=== PATIENT | female | born 2000 | race Two or more races ===

== ENCOUNTER 2023-12-05 16:56 | Emergency (ER) | payer MEDICAID ==
[~2023-12-05] VITALS: Ht 165.1 cm; Wt 58.1 kg
[2023-12-05 17:11] VITALS: TEMP 98.6
[2023-12-05] MEDS ORDERED: methylPREDNISolone SOD SUCC 125 MG/2ML VIAL ONE (17:30)
[2023-12-05] MEDS ORDERED: diphenhydrAMINE HCL 50 MG/ML VIAL ONE (17:30)
[2023-12-05] MEDS ORDERED: FAMOTIDINE/PF INJ 20 MG/2 ML VIAL IV ONE (17:31)
[2023-12-05] MEDS: diphenhydrAMINE HCL 50 MG/ML VIAL IV ONE (17:50)
[2023-12-05] MEDS: FAMOTIDINE/PF INJ 20 MG/2 ML VIAL IV ONE (17:51)
[2023-12-05] MEDS: methylPREDNISolone SOD SUCC 125 MG/2ML VIAL IV ONE (17:51)
[2023-12-05] MEDS: IV NS 0.9% 500 ML BAG IV ONE (18:41)
[2023-12-05] MEDS ORDERED: DIPH25CA83 PO (19:18)
[2023-12-05] MEDS ORDERED: FAMO20TA80 PO (19:18)
[2023-12-05] MEDS ORDERED: PRED20TA PO (19:18)
[2023-12-05 19:50] VITALS: BP 110/75; O2SAT 100
== END 2023-12-05 19:50 | disposition home or self-care (01) ==
LOC: ER 17:03
DX: R21 Rash and other nonspecific skin eruption (principal); T78.40XA Allergy, unspecified, initial encounter; X58.XXXA Exposure to other specified factors, initial encounter
CPT/HCPCS: 99284; 96374; 96361; 96375 ×2; J1200; J3490; J2919; J7040

== ENCOUNTER 2024-11-09 15:51 | Emergency (ER) | payer MEDICAID, OTHER ==
[~2024-11-09] VITALS: Ht 167.6 cm; Wt 58.1 kg
[~2024-11-09 15:51] MED LIST: DIPH25CA83 PO; FAMO20TA80 PO; PRED20TA PO
[2024-11-09 16:08] VITALS: BP 99/64; TEMP 98.7; O2SAT 99
[2024-11-09 17:09] LABS: BASOPHILS # (AUTO) 0.1 K/uL (0.0-0.2); EOSINOPHILS # (AUTO) 0.2 K/uL (0.0-0.7); HEMOGLOBIN 12.3 g/dL (11.5-14.8); MONOCYTES # (AUTO) 0.5 K/uL (0.1-1.30); WHITE BLOOD COUNT (AUTO) 5.9 K/uL (4.3-11.0)
[2024-11-09 17:16] LABS: CALCIUM, SERUM 8.9 mg/dL (8.5-10.1); CREATININE 1.1 mg/dL (0.6-1.3); EOSINOPHILS % (AUTO) 3.8 % (0.0-6.0); HEMATOCRIT 38 % (33-45); LYMPHOCYTES # (AUTO) 1.5 K/uL (0.8-4.8); LYMPHOCYTES % (AUTO) 25.8 % (20.0-44.0); MEAN CORPUSCULAR HEMOGLOBIN 28 PG (26.0-33.0); MEAN CORPUSCULAR HGB CONC 32 g/dl (31.0-36.0); MEAN CORPUSCULAR VOLUME 87 fL (82-100); NEUTROPHILS # (AUTO) 3.7 K/uL (1.8-8.9); NEUTROPHILS % (AUTO) 61.4 % (43.0-81.0); PLATELET COUNT (AUTO) 241 K/uL (150-450); POTASSIUM 3.6 mmol/L (3.5-5.1); RED BLOOD CELL COUNT(AUTO) 4.37 MIL/uL (4.0-5.2); RED CELL DISTRIBUTION WIDTH 16.3 % (11.5-15.0)
[2024-11-09] MEDS ORDERED: IBUP-1490 PO (17:20)
[2024-11-09] MEDS ORDERED: IBUP-1492 PO (17:27)
[2024-11-10 10:10] LABS: RAPID PLASMA REAGIN QUAL. Non Reactive (Non Reactive)
[2024-11-10 14:42] LABS: HIV-1 p24 ANTIGEN NON REACTIVE (NONREACTIVE); HIV-1/2 ANTIBODY NON REACTIVE (NONREACTIVE)
== END 2024-11-09 17:28 | disposition home or self-care (01) ==
LOC: ER 16:09
DX: J06.9 Acute upper respiratory infection, unspecified (principal); Z79.52 Long term (current) use of systemic steroids
CPT/HCPCS: 36415; 71045-TC; 80048-TC; 85025-TC; 86592; 86593; 87806